=== PATIENT | male | born 1965 | race Caucasian/White ===

== ENCOUNTER 2016-08-27 18:24 | Emergency (ER) | payer BC ==
[2016-08-27 20:14] LABS: HEMOGLOBIN 14.3 gm/dl (14.0-17.5); RED BLOOD COUNT 4.84 M/UL (4.20-5.50); WHITE BLOOD COUNT 10.4 K/UL (4.5-11.0)
[2016-08-27 21:03] LABS: BUN/CREATININE RATIO 13 (0-10)
== END 2016-08-28 00:49 | disposition home or self-care (01) ==
LOC: ER1 18:24
PROVIDERS: Student in an Organized Health Care Education/Training Program
DX: N13.2 Hydronephrosis with renal and ureteral calculous obstruction (principal); N28.1 Cyst of kidney, acquired; K44.9 Diaphragmatic hernia without obstruction or gangrene; K57.30 Diverticulosis of large intestine without perforation or abscess without bleeding; I10 Essential (primary) hypertension; E78.5 Hyperlipidemia, unspecified
CPT/HCPCS: 36415; 80053; 81001; 85025; 96374; 96375; 99284; J2270; J2405

== ENCOUNTER → 2016-09-26 | Outpatient (CLI) | payer BC ==
[2016-09-26 06:47] LABS: HEMOGLOBIN 13.9 gm/dl (14.0-17.5); RED BLOOD COUNT 4.72 M/UL (4.20-5.50); WHITE BLOOD COUNT 5.2 K/UL (4.5-11.0)
[2016-09-26 07:07] LABS: BUN/CREATININE RATIO 14 (0-10)
== END ==
LOC: LAB 05:59
PROVIDERS: Physician Assistant
DX: D64.9 Anemia, unspecified (principal); I10 Essential (primary) hypertension; R79.89 Other specified abnormal findings of blood chemistry; E78.5 Hyperlipidemia, unspecified
CPT/HCPCS: 36415; 80053; 80061; 82607; 82728; 82746; 83540; 83550; 83921; 85025

== ENCOUNTER → 2016-10-16 | Outpatient (CLI) | payer BC | LOC: RAD 06:09 | DX: N20.1 Calculus of ureter (principal); K59.00 Constipation, unspecified | CPT/HCPCS: 74020 ==

== ENCOUNTER → 2020-07-13 | Outpatient (CLI) | payer BC ==
[~2020-07-13] MED LIST: AUGMENTIN 875-1 EACH PO; DECADRON6 MG PO; FISH OIL 1,0001 EAC3 PO; HYDROCHLOROTH12.5 MG PO; LIPITOR40 MG PO; LISINOPRIL40 MG PO; MEN 50 PLUS MU1 EACH PO; PROVENTIL HFA6.7 GM INH; VITAMIN D 40400 UNIT PO
== END ==
LOC: EXRD 08:08
DX: J18.9 Pneumonia, unspecified organism (principal)
CPT/HCPCS: 71046

== ENCOUNTER → 2022-01-09 | Outpatient (CLI) | payer BC ==
[2022-01-09 07:13] LABS: HEMOGLOBIN 15.4 gm/dl (14.0-17.5); RED BLOOD COUNT 5.17 M/UL (4.20-5.50)
[2022-01-09 07:42] LABS: BUN/CREATININE RATIO 16 (0-10)
== END ==
LOC: LAB 06:40
PROVIDERS: Nurse Practitioner Family
DX: E78.5 Hyperlipidemia, unspecified (principal); I10 Essential (primary) hypertension; E55.9 Vitamin D deficiency, unspecified
CPT/HCPCS: 36415; 80053; 80061; 82570; 82607; 83036; 84156; 84439; 84443; 85025